=== PATIENT | female | born 1980 | race Caucasian/White ===

== ENCOUNTER 2018-04-19 10:21 | Day surgery (SDC) | payer BC ==
[2018-04-14 11:45] LABS: BASOPHILS % (AUTO) 0.3 % (0-1); EOSINOPHILS % (AUTO) 0.6 % (0-6); LYMPHOCYTES # (AUTO) 1.8 X10'3 (1.1-4.8); LYMPHOCYTES % (AUTO) 32.3 % (21-51); MEAN CORPUSCULAR HEMOGLOBIN 30.2 PG (27.0-31.0); MEAN CORPUSCULAR HGB CONC 33.8 % (33.0-36.5); MEAN CORPUSCULAR VOLUME 89.3 FL (78-98); MEAN PLATELET VOLUME 9.2 FL (7.4-10.4); MONOCYTES # (AUTO) 0.3 X10'3 (0-0.9); MONOCYTES % (AUTO) 5.6 % (2-12); NEUTROPHILS # (AUTO) 3.3 X10'3 (1.8-7.7); NEUTROPHILS % (AUTO) 61.2 % (42-75); PRE OP HEMATOCRIT 39.6 % (35.0-45.0); PRE OP HEMOGLOBIN 13.4 g/dL (12.0-16.0); PRE OP PLATELET COUNT 200 X10'3 (140-440); RED BLOOD COUNT 4.43 X10'6 (4.20-5.60); RED CELL DISTRIBUTION WIDTH 12.2 % (11.5-14.5)
[2018-04-14 11:48] LABS: CLARITY,URINE SLIGHTLY CLOUDY (Clear); COLOR,URINE YELLOW (Yellow); GLUCOSE, URINE NEGATIVE (Neg); KETONES,URINE NEGATIVE (Neg); LEUKOCYTE ESTERASE ,URINE NEGATIVE (Neg); NITRITES, URINE NEGATIVE (Neg); OCCULT BLOOD,URINE NEGATIVE (Neg); PH,URINE 7.5 (4.8-8.0); PROTEIN,URINE NEGATIVE (Neg)
[2018-04-14 12:01] LABS: ALBUMIN 3.9 G/DL (3.4-5.0); ALBUMIN/GLOBULIN RATIO 1.1 (1.1-1.5); ALKALINE PHOSPHATASE 68 IU/L (46-116); BLOOD UREA NITROGEN 9 MG/DL (7-18); BUN/CREATININE RATIO 11.1 (6.6-38.0); CHLORIDE 102 MMOL/L (99-107); CREATININE 0.81 MG/DL (0.40-0.90); PRE OP ALT 28 U/L (30-65); PRE OP ANION GAP 9 (8-16); PRE OP AST 16 U/L (10-37); PRE OP BILIRUB, TOTAL 0.7 MG/DL (0.0-1.0); PRE OP GLUCOSE 96 MG/DL (70-104); PRE OP POTASSIUM 3.6 MMOL/L (3.4-5.1); PRE OP SODIUM 139 MMOL/L (135-145); TOTAL CARBON DIOXIDE 28.5 MMOL/L (24-32); TOTAL PROTEIN 7.4 G/DL (6.4-8.2); eGFR 80 ML/MIN
[2018-04-14 12:14] LABS: BACTERIA,URINE 1+ /HPF (Neg); MUCUS STRANDS MANY /LPF (Neg); RBC,URINE NONE SEEN /HPF (0-2); SQUAMOUS EPITHELIAL CELL,UR MANY /LPF (FEW); WBC,URINE 0-4 /HPF (0-4)
[2018-04-14 12:15] LABS: UA COLLECTION TYPE CLN CATCH MIDSTREAM
[2018-04-14 12:20] LABS: HCG SERUM QL NEGATIVE
[~2018-04-19] VITALS: Ht 177.8 cm; Wt 71.9 kg
[2018-04-19] VITALS (18 sets, daily range): BP systolic 101–134; BP diastolic 34–94
[~2018-04-19 10:21] MED LIST: NO HOME MEDS; ceFOXitin 2 GM ADDvantage bag 100 ML IV ONE; famotidine 20mg tablet PO ONE; scopolamine 1.5mg patch.TD72 TD ONE
[2018-04-19] MEDS ORDERED: LIDOcaine 1% (10mg/ml) 2ml vial ONE (10:28)
[2018-04-19] MEDS: ringers solution, lacted 1,000 ML IV SCH ×2 (10:51→19:05)
[2018-04-19] MEDS ORDERED: clindamycin phosphate 40gm vag cream ONE (11:09)
[2018-04-19] MEDS ORDERED: vasoPRESSIN 20 units/ml inj. ONE (11:10)
[2018-04-19] MEDS ORDERED: neomy sulf/polymyxin B sulf. GU irrigation 1ml amp IR ONE (11:10)
[2018-04-19] MEDS ORDERED: BUPIVAcaine/PF 2.5mg/ml (0.25%) 10ml vial ONE (11:10)
[2018-04-19] MEDS ORDERED: diazepam 5mg tablet PO ONE (11:35)
[2018-04-19] MEDS ORDERED: sevoflurane 250ml liquid IH ONE (12:21)
[2018-04-19] MEDS ORDERED: fentaNYL /PF 50mcg/ml 5ml ampule ONE (12:25)
[2018-04-19] MEDS ORDERED: midazolam 2 mg/2 ml injection ONE (12:25)
[2018-04-19] MEDS ORDERED: propofol inj 20 ML IV ONE (12:28)
[2018-04-19] MEDS ORDERED: LIDOcaine 2% (20mg/ml) 5ml vial ONE (12:28)
[2018-04-19] MEDS ORDERED: rocuronium 10mg/ml inj IV ONE (12:28)
[2018-04-19] MEDS ORDERED: dexamethasone sod phosphate 4mg/ml inj. ONE (12:54)
[2018-04-19] MEDS ORDERED: ringers solution, lacted 1,000 ML IV SCH (13:29)
[2018-04-19] MEDS ORDERED: ondansetron/PF 4mg/2ml inj IV PRN ×2 (13:30→13:50)
[2018-04-19] MEDS ORDERED: proCHLORperazine 10 MG/2 ml inj IV PRN (13:30)
[2018-04-19] MEDS ORDERED: morphine 4 MG/ML inj SYRINge IV PRN ×2 (13:30)
[2018-04-19] MEDS ORDERED: meperidine/PF 25mg/ml syringe IV PRN ×3 (13:30)
[2018-04-19] MEDS ORDERED: neostigmine methylsulfate 1 MG/ML 10ml vial ONE (13:39)
[2018-04-19] MEDS ORDERED: glycopyrrolate 0.2mg/ml inj ONE (13:39)
[2018-04-19] MEDS ORDERED: ondansetron/PF 4mg/2ml inj ONE (13:40)
[2018-04-19] MEDS ORDERED: HYDROcodone/acetaminophen 10/325mg tab PO PRN ×2 (13:50)
[2018-04-19] MEDS ORDERED: normal saline 500ml IV soln 500 ML IV PRN (13:50)
[2018-04-19] MEDS ORDERED: diphenhydrAMINE 50 mg/ml inj IV PRN (13:50)
[2018-04-19] MEDS ORDERED: LORazepam 2 mg/ml vial IV PRN (13:50)
[2018-04-19] MEDS ORDERED: mag hydrox/Alum hydrox/simeth 30ml oral suspension PO PRN (13:50)
[2018-04-19] MEDS ORDERED: temazepam 15mg capsule PO PRN (13:50)
[2018-04-19] MEDS ORDERED: metoclopramide 5 mg/ml inj IV PRN (13:50)
[2018-04-19] MEDS: ketorolac trometh. 30mg/ml inj. IV PRN (14:23)
[2018-04-19] MEDS: simethicone 80mg chew tab PO SCH (18:00)
[2018-04-19] MEDS: docusate sod 100mg capsule PO SCH (20:00)
[2018-04-20] VITALS: BP_SYST 107; BP_SYST 112; BP_DIAS 62; BP_DIAS 67
[2018-04-20] MEDS: ringers solution, lacted 1,000 ML IV SCH (00:52)
[2018-04-20] MEDS: ketorolac trometh. 30mg/ml inj. IV PRN (03:38)
[2018-04-20 05:37] LABS: BASOPHILS % (AUTO) 0 % (0-1); EOSINOPHILS # (AUTO) 0.2 X10'3 (0-0.9); EOSINOPHILS % (AUTO) 1.7 % (0-6); HEMATOCRIT 34.8 % (35.0-45.0); HEMOGLOBIN 12.1 g/dl (12.0-16.0); LYMPHOCYTES # (AUTO) 0.7 X10'3 (1.1-4.8); LYMPHOCYTES % (AUTO) 7.8 % (21-51); MEAN CORPUSCULAR HEMOGLOBIN 30.3 PG (27.0-31.0); MEAN CORPUSCULAR HGB CONC 34.7 % (33.0-36.5); MEAN CORPUSCULAR VOLUME 87.3 FL (78-98); MEAN PLATELET VOLUME 10.1 FL (7.4-10.4); MONOCYTES # (AUTO) 0.4 X10'3 (0-0.9); MONOCYTES % (AUTO) 4.3 % (2-12); NEUTROPHILS # (AUTO) 7.8 X10'3 (1.8-7.7); NEUTROPHILS % (AUTO) 86.2 % (42-75); PLATELET COUNT 146 X10'3 (140-440); RED BLOOD COUNT 3.98 X10'6 (4.20-5.60); RED CELL DISTRIBUTION WIDTH 12.1 % (11.5-14.5)
[2018-04-20 05:49] LABS: ALBUMIN 3.5 G/DL (3.4-5.0); ANION GAP 11 (8-16); BLOOD UREA NITROGEN 10 MG/DL (7-18); BUN/CREATININE RATIO 10.4 (6.6-38.0); CHLORIDE 103 MMOL/L (99-107); CREATININE 0.96 MG/DL (0.40-0.90); GLUCOSE 144 MG/DL (70-104); SODIUM 137 MMOL/L (135-145); TOTAL CARBON DIOXIDE 22.9 MMOL/L (24-32); eGFR 66 ML/MIN
[2018-04-20 07:00] VITALS: BP 118/57
[2018-04-20] MEDS ORDERED: enoxaparin 40mg/0.4ml syringe SQ SCH (08:00)
[2018-04-20] MEDS: docusate sod 100mg capsule PO SCH (08:34)
[2018-04-20] MEDS: simethicone 80mg chew tab PO SCH (08:34)
== END 2018-04-20 09:52 | disposition home or self-care (01) ==
LOC: PAS 10:21 → SUR 3N 13:46 → PAS 04-20 09:52
PROVIDERS: ATTEND Obstetrics & Gynecology Obstetrics
DX: D06.0 Carcinoma in situ of endocervix (principal); N80.3 Endometriosis of pelvic peritoneum; F41.9 Anxiety disorder, unspecified; Z98.890 Other specified postprocedural states; Z79.899 Other long term (current) drug therapy; Z90.49 Acquired absence of other specified parts of digestive tract; Z72.89 Other problems related to lifestyle; Z88.5 Allergy status to narcotic agent
CPT/HCPCS: 36415; 58552; 71046; 80048; 80053; 81001; 84703; 85025; 86885; 86900; 86901; 87070; J0694; J0780; J1100; J1650; J1885; J2001; J2060; J2175; J2250; J2405; J2704; J2710; J3010; J3490; J7030; J7120; A7000